=== PATIENT | female | born 1965 | race Caucasian/White ===

== ENCOUNTER 2019-07-23 14:05 | Day surgery (SDC) | payer MEDICAID, OTHER ==
[2019-07-23] MEDS ORDERED: Ondansetron 4 MG/2 ML SDV IVPUSH ONE (15:26)
[2019-07-23] MEDS ORDERED: Sodium Chloride 0.9% 1,000 ML IV SCH (15:30)
[2019-07-23] MEDS ORDERED: HYDROmorphone 0.5 MG/0.5 ML Syringe IVPUSH ONE (15:35)
[2019-07-23] MEDS ORDERED: Diatrizoate Meglumine/Diatrizoate Sodium 37% 120 ML Bottle PO ONE (16:30)
--- NOTE | 2019-07-23 16:30 | EDM.PDOC ---
ED HPI GENERAL MEDICAL PROBLEM - General Chief Complaint: Abdominal Pain Stated Complaint: ABDOMINAL PAIN Time Seen by Provider: 07/23/19 15:23 Source of Information: Reports: Patient, RN Notes Reviewed History Limitations: Reports: No Limitations - History of Present Illness INITIAL COMMENTS - FREE TEXT/NARRATIVE: Patient is a 53-year-old female who presents to the ED for evaluation of abdominal pain. Patient notes his pain has been present for around 3 days now, she states this is in her right lower quadrant, and she is having sharp intermittent pain, that is worsening with ambulation, and now she cannot even stand straight as she states that this pulls on the abdomen and causes the pain to worsen. She notes she does have a decreased appetite with this, she has nausea with eating but no vomiting. She notes she was having some cold sweats last night due to the pain. She has been trying some milk of magnesia and Tums , she thought possibly it was constipation, however she is had a few loose stools, the pain has not gotten better. Patient notes that while lying on the ER cot it feels better if she has her legs drawn up towards her chest, when she lays her legs flat this makes the pain worse. She has not had any abdominal surgeries, so still retains her appendix and gallbladder at this time. She is not having any upper abdominal pain. She denies any heart issues, lung issues, or any other urinary issues. She states that her abdomen even hurts when she bears down to go to the bathroom. She states that she has not eaten anything today, she is felt too nauseous, and her last meal was last night. 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: Musculoskeletal History: Reports: None Neurological History: Reports: Headaches, Chronic Psychiatric History: Reports: Anxiety, Depression Endocrine/Metabolic History: Reports: None Hematologic History: Reports: None Immunologic History: Reports: None Oncologic (Cancer) History: Reports: None Dermatologic History: Reports: None - Infectious Disease History Infectious Disease History: Reports: None - Past Surgical History HEENT Surgical History: Reports: Adenoidectomy, Oral Surgery, Tonsillectomy Social & Family History - Family History Family Medical History: Noncontributory - Tobacco Use Smoking Status *Q: Current Every Day Smoker Years of Tobacco use: 30 Packs/Tins Daily: 0.5 - Caffeine Use Caffeine Use: Reports: Coffee, Soda - Recreational Drug Use Recreational Drug Use: No ED ROS GENERAL - Review of Systems Review Of Systems: See Below Constitutional: Reports: Chills, Decreased Appetite. Denies: Fever, Weight Loss Respiratory: Denies: Shortness of Breath Cardiovascular: Denies: Chest Pain GI/Abdominal: Reports: Abdominal Pain (RLQ ), Diarrhea (few loose stools), Decreased Appetite, Nausea. Denies: Black Stool, Bloody Stool, Constipation, Vomiting : Denies: Discharge, Dysuria, Frequency, Urgency Musculoskeletal: Denies: Back Pain ED EXAM, GI/ABD - Physical Exam Exam: See Below Exam Limited By: No Limitations General Appearance: Alert, WD/WN, No Apparent Distress Eyes: Bilateral: Normal Appearance, EOMI Ears: Normal External Exam Nose: Normal Inspection Throat/Mouth: Normal Inspection, Normal Lips, Normal Teeth, Normal Gums, Normal Oropharynx, Normal Voice, No Airway Compromise Head: Atraumatic, Normocephalic Neck: Normal Inspection Respiratory/Chest: No Respiratory Distress, Lungs Clear, Normal Breath Sounds, No Accessory Muscle Use, Chest Non-Tender Cardiovascular: Normal Peripheral Pulses, Regular Rate, Rhythm, No Edema, No Murmur GI/Abdominal Exam: Normal Bowel Sounds, Soft, No Distention, No Mass, Rebound ( slight on RLQ), Tender (RLQ, McBurney pt positive). No: Guarding, Rigid Extremities: Normal Inspection, Normal Capillary Refill Neurological: Alert, Oriented, Normal Cognition, No Motor/Sensory Deficits Psychiatric: Normal Affect, Normal Mood Skin Exam: Warm, Dry, Intact, Normal Color, No Rash Course - Vital Signs Last Recorded V/S: Last Vital Signs Temp 98.6 F 07/23/19 14:36 Pulse 103 H 07/23/19 14:36 Resp 16 07/23/19 14:36 BP 126/81 07/23/19 14:36 Pulse Ox 93 L 07/23/19 14:36 - Orders/Labs/Meds Orders: Active Orders 24 hr Category Date Time Status Notify Provider Consults [RC] ASDIRECTED Care 07/23/19 17:58 Ordered Consult to Physician [CONS] Stat Cons 07/23/19 17:57 Ordered Ertapenem [INVanz] 1 gm Med 07/23/19 17:56 Ordered Sodium Chloride 0.9% [Normal Saline] 50 ml IV ONETIME Sodium Chloride 0.9% [Normal Saline] 1,000 ml Med 07/23/19 15:30 Ordered IV ASDIRECTED Medication Orders Sodium Chloride (Normal Saline) 1,000 mls @ 999 mls/hr IV ASDIRECTED SANDER Last Admin: 07/23/19 15:59 Dose: 999 mls/hr Labs: Laboratory Tests 07/23/19 07/23/19 07/23/19 Range/Units 15:45 15:45 16:38 WBC 13.36 H (3.98-10.04) K/mm3 RBC 4.91 (3.98-5.22) M/mm3 Hgb 15.0 (11.2-15.7) gm/dl Hct 44.4 (34.1-44.9) % MCV 90.4 (79.4-94.8) fl MCH 30.5 (25.6-32.2) pg MCHC 33.8 (32.2-35.5) g/dl RDW Std Deviation 43.0 (36.4-46.3) fL Plt Count 310 (182-369) K/mm3 MPV 8.1 L (9.4-12.3) fl Neutrophils % (Manual) 76 H (40-60) % Band Neutrophils % 0 (0-10) % Lymphocytes % (Manual) 18 L (20-40) % Atypical Lymphs % 0 % Monocytes % (Manual) 6 (2-10) % Eosinophils % (Manual) 0 L (0.7-5.8) % Basophils % (Manual) 0 L (0.1-1.2) Platelet Estimate Adequate Plt Morphology Comment Normal RBC Morph Comment Normal Sodium 140 (136-145) mEq/L Potassium 3.4 L (3.5-5.1) mEq/L Chloride 100 (98-107) mEq/L Carbon Dioxide 29 (21-32) mEq/L Anion Gap 14.4 (5-15) BUN 11 (7-18) mg/dL Creatinine 0.9 (0.55-1.02) mg/dL Est Cr Clr Drug Dosing 59.11 mL/min Estimated GFR (MDRD) > 60 (>60) mL/min BUN/Creatinine Ratio 12.2 L (14-18) Glucose 99 (74-106) mg/dL Calcium 9.4 (8.5-10.1) mg/dL Total Bilirubin 0.3 (0.2-1.0) mg/dL AST 14 L (15-37) U/L ALT 21 (14-59) U/L Alkaline Phosphatase 86 (46-116) U/L Total Protein 7.9 (6.4-8.2) g/dl Albumin 3.9 (3.4-5.0) g/dl Globulin 4.0 gm/dL Albumin/Globulin Ratio 1.0 (1-2) Urine Color Light yellow (Yellow) Urine Appearance Cloudy H (Clear) Urine pH 8.5 H (5.0-8.0) Ur Specific [place] 1.015 (1.005-1.030) Urine Protein 2+ H (Negative) Urine Glucose (UA) Negative (Negative) Urine Ketones Trace H (Negative) Urine Occult Blood Negative (Negative) Urine Nitrite Negative (Negative) Urine Bilirubin Negative (Negative) Urine Urobilinogen 0.2 (0.2-1.0) Ur Leukocyte Esterase Negative (Negative) Urine RBC 0-5 (0-5) /hpf Urine WBC 0-5 (0-5) /hpf Ur Squamous Epith Cells 20-30 H (0-5) /hpf Amorphous Sediment Many H (NOT SEEN) /hpf Urine Bacteria Rare (FEW) /hpf Urine Mucus Not seen (FEW) /hpf Urine HCG, Qual (NEGATIVE) 07/23/19 Range/Units 16:38 WBC (3.98-10.04) K/mm3 RBC (3.98-5.22) M/mm3 Hgb (11.2-15.7) gm/dl Hct (34.1-44.9) % MCV (79.4-94.8) fl MCH (25.6-32.2) pg MCHC (32.2-35.5) g/dl RDW Std Deviation (36.4-46.3) fL Plt Count (182-369) K/mm3 MPV (9.4-12.3) fl Neutrophils % (Manual) (40-60) % Band Neutrophils % (0-10) % Lymphocytes % (Manual) (20-40) % Atypical Lymphs % % Monocytes % (Manual) (2-10) % Eosinophils % (Manual) (0.7-5.8) % Basophils % (Manual) (0.1-1.2) Platelet Estimate Plt Morphology Comment RBC Morph Comment Sodium (136-145) mEq/L Potassium (3.5-5.1) mEq/L Chloride (98-107) mEq/L Carbon Dioxide (21-32) mEq/L Anion Gap (5-15) BUN (7-18) mg/dL Creatinine (0.55-1.02) mg/dL Est Cr Clr Drug Dosing mL/min Estimated GFR (MDRD) (>60) mL/min BUN/Creatinine Ratio (14-18) Glucose (74-106) mg/dL Calcium (8.5-10.1) mg/dL Total Bilirubin (0.2-1.0) mg/dL AST (15-37) U/L ALT (14-59) U/L Alkaline Phosphatase (46-116) U/L Total Protein (6.4-8.2) g/dl Albumin (3.4-5.0) g/dl Globulin gm/dL Albumin/Globulin Ratio (1-2) Urine Color (Yellow) Urine Appearance (Clear) Urine pH (5.0-8.0) Ur Specific [place] (1.005-1.030) Urine Protein (Negative) Urine Glucose (UA) (Negative) Urine Ketones (Negative) Urine Occult Blood (Negative) Urine Nitrite (Negative) Urine Bilirubin (Negative) Urine Urobilinogen (0.2-1.0) Ur Leukocyte Esterase (Negative) Urine RBC (0-5) /hpf Urine WBC (0-5) /hpf Ur Squamous Epith Cells (0-5) /hpf Amorphous Sediment (NOT SEEN) /hpf Urine Bacteria (FEW) /hpf Urine Mucus (FEW) /hpf Urine HCG, Qual Negative (NEGATIVE) Meds: Medications Generic Name Dose Route Start Last Admin Trade Name Sanjuana PRN Reason Stop Dose Admin Sodium Chloride 1,000 mls @ 999 mls/hr 07/23/19 15:30 07/23/19 15:59 Normal Saline IV 999 mls/hr ASDIRECTED SANDER Administration Discontinued Medications Generic Name Dose Route Start Last Admin Trade Name Sanjuana PRN Reason Stop Dose Admin Diatrizoate Meglum/Diatrizoate Sod 120 ml 07/23/19 16:30 07/23/19 17:20 Gastrografin 37% PO 07/23/19 16:31 120 ml ONETIME ONE Administration Hydromorphone HCl 0.5 mg 07/23/19 15:35 07/23/19 15:55 Dilaudid IVPUSH 07/23/19 15:36 0.5 mg ONETIME ONE Administration Iopamidol 100 ml 07/23/19 16:31 07/23/19 17:22 Isovue-300 (61%) IVPUSH 07/23/19 16:32 100 ml ONETIME ONE Administration Ondansetron HCl 4 mg 07/23/19 15:26 07/23/19 15:55 Zofran IVPUSH 07/23/19 15:27 4 mg ONETIME ONE Administration Sodium Chloride 10 ml 07/23/19 16:45 07/23/19 17:22 Saline Flush FLUSH 07/23/19 16:46 10 ml ONETIME ONE Administration - Re-Assessments/Exams Free Text/Narrative Re-Assessment/Exam: 07/23/19 16:32 Patient presents to the ED for the evaluation of right lower quadrant abdominal pain. Did order CBC, CMP, urinalysis, hCG, IV Zofran and some IV fluids with 0.5 mg of Dilaudid and abdomen pelvis CT with oral and IV contrast for further evaluation. 07/23/19 17:58 CBC was mildly elevated at 13,000, CT is done, demonstrates findings that are felt compatible with appendicitis, a dilated appendix, with mild inflammatory change seen around the appendix. Departure - Departure Time of Disposition: 17:59 Disposition: DC/Tfer to [facility] Access [facility] Condition: Fair Clinical Impression: Appendicitis Qualifiers: Appendicitis type: acute appendicitis Acute appendicitis type: with localized peritonitis Appendicitis gangrene presence: without gangrene Appendicitis perforation presence: without perforation Appendicitis abscess presence: without abscess Qualified Code(s): K35.30 - Acute appendicitis with localized peritonitis, without perforation or gangrene - Discharge Information *PRESCRIPTION DRUG MONITORING PROGRAM REVIEWED*: No *COPY OF PRESCRIPTION DRUG MONITORING REPORT IN PATIENT FERNANDA: No Referrals: Kat Summers NP [Primary Care Provider] - Forms: ED Department Discharge Sepsis Event Note - Evaluation Sepsis Screening Result: No Definite Risk - Focused Exam Vital Signs: Vital Signs Temp Pulse Resp BP Pulse Ox 07/23/19 14:36 98.6 F 103 H 16 126/81 93 L Date Exam was Performed: 07/23/19 Time Exam was Performed: 17:58 - My Orders Last 24 Hours: My Active Orders 07/23/19 15:30 Sodium Chloride 0.9% [Normal Saline] 1,000 ml IV ASDIRECTED 07/23/19 17:56 Ertapenem [INVanz] 1 gm Sodium Chloride 0.9% [Normal Saline] 50 ml IV ONETIME 07/23/19 17:57 Consult to Physician [CONS] Stat 07/23/19 17:58 Notify Provider Consults [RC] ASDIRECTED - Assessment/Plan Last 24 Hours: My Active Orders 07/23/19 15:30 Sodium Chloride 0.9% [Normal Saline] 1,000 ml IV ASDIRECTED 07/23/19 17:56 Ertapenem [INVanz] 1 gm Sodium Chloride 0.9% [Normal Saline] 50 ml IV ONETIME 07/23/19 17:57 Consult to Physician [CONS] Stat 07/23/19 17:58 Notify Provider Consults [RC] ASDIRECTED
[2019-07-23] MEDS ORDERED: Iopamidol 612 MG/ML 100 ML Bottle IVPUSH ONE (16:31)
[2019-07-23] MEDS ORDERED: Sodium Chloride 0.9% 10 ML Syringe FLUSH ONE (16:45)
--- NOTE | 2019-07-23 17:49 | CT ---
CT abdomen and pelvis Technique: Multiple axial sections were obtained from above the dome of the diaphragm inferiorly through the pubic symphysis. Intravenous and oral contrast was utilized. Delayed images were also obtained through the bladder. Findings: Appendix is seen and appears dilated. Mild inflammatory change is seen around the appendix. Findings are felt compatible with appendicitis. Other findings: Visualized lung bases show nothing acute. Liver contains no focal abnormality. Spleen appears within normal limits. Adrenal glands show no nodule. Kidneys show symmetric contrast enhancement without hydronephrosis or mass. Pancreas appears within normal limits. Gallbladder shows no calcified gallstones. Aorta shows mild atherosclerotic calcification without aneurysm. No retroperitoneal adenopathy is seen. No mesenteric abnormalities are seen. No pelvic mass or adenopathy is appreciated. Delayed images shows contrast within the bladder. Bone window settings were reviewed which appear within normal limits for the patient's age. Impression: 1. Findings which are felt compatible with appendicitis. 2. No other acute finding is seen on CT study of the abdomen and pelvis. Diagnostic code #5 This report was dictated in [place] Standard Time
[2019-07-23] MEDS ORDERED: Ertapenem 1 GM in Sodium Chloride 0.9% 50 ML IV ONE (17:56)
[2019-07-23] MEDS ORDERED: Lidocaine 1% 50 ML MDV ONE (19:16)
--- NOTE | 2019-07-23 19:21 | PCM.CONS ---
H&P History of Present Illness - General Date of Service: 07/23/19 Admit Problem/Dx: Admission Diagnosis/Problem Admission Diagnosis/Problem Appendicitis Source of Information: Patient History Limitations: Reports: No Limitations - History of Present Illness Initial Comments - Free Text/Narative: The patient started having RLQ abdominal pain 3 days ago. She had gotten a flu shot recently and was on PCN for tooth abscess so she thought her abdominal pain was related to the side effects of the above. However, the pain persisted and worsened. Pain is not radiating, associated with diarrhea and anorexia. She stopped antibiotics two days ago due to anorexia and her pain worsened last night prompting ED presentation today. Last meal was last night, last drink 1PM today. No prior abdominal operations. Onset of Symptoms: Reports: Gradual Duration of Symptoms: Reports: Day(s): (3), Getting Worse Location: Reports: Abdomen (RLQ) Quality: Reports: Stabbing Severity: Severe Improves with: Reports: Immobilization Worsens with: Reports: Movement Associated Symptoms: Reports: Loss of Appetite, Malaise, Other (diarrhea) Right Lower Abdomen Pain Score (Numeric/FACES): 6 - Related Data Allergies/Adverse Reactions: Allergies Allergy/AdvReac Type Severity Reaction Status Date / Time No Known Allergies Allergy Verified 07/23/19 14:30 Home Medications: Home Meds Escitalopram [Lexapro] 10 mg PO DAILY 07/23/19 [History] LORazepam [Ativan] 0.5 mg PO ONCALL PRN 07/23/19 [History] Penicillin V Potassium 500 mg PO QID 07/23/19 [History] Past Medical History HEENT History: Reports: Impaired Vision Cardiovascular History: Reports: None Respiratory History: Reports: None Gastrointestinal History: Reports: None Genitourinary History: Reports: None 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 Neurological History: Reports: Headaches, Chronic Psychiatric History: Reports: Anxiety, Depression Endocrine/Metabolic History: Reports: None Hematologic History: Reports: None Immunologic History: Reports: None Oncologic (Cancer) History: Reports: None Dermatologic History: Reports: None - Infectious Disease History Infectious Disease History: Reports: None - Past Surgical History HEENT Surgical History: Reports: Adenoidectomy, Oral Surgery, Tonsillectomy Social & Family History - Family History Family Medical History: Noncontributory - Tobacco Use Smoking Status *Q: Current Every Day Smoker Years of Tobacco use: 30 Packs/Tins Daily: 0.5 - Caffeine Use Caffeine Use: Reports: Coffee, Soda - Recreational Drug Use Recreational Drug Use: No H&P Review of Systems - Review of Systems: Review Of Systems: See Below General: Reports: Chills, Night Sweats HEENT: Reports: No Symptoms Pulmonary: Reports: No Symptoms Cardiovascular: Reports: No Symptoms Gastrointestinal: Reports: Abdominal Pain, Anorexia, Diarrhea Genitourinary: Reports: No Symptoms Musculoskeletal: Reports: No Symptoms Skin: Reports: No Symptoms Psychiatric: Reports: No Symptoms Neurological: Reports: No Symptoms Hematologic/Lymphatic: Reports: No Symptoms Exam - Exam Exam: See Below - Vital Signs Vital Signs: Last Vital Signs Temp 98.6 F 07/23/19 14:36 Pulse 103 H 07/23/19 14:36 Resp 16 07/23/19 14:36 BP 126/81 07/23/19 14:36 Pulse Ox 93 L 07/23/19 14:36 Weight: 58.967 kg - Exam General: Alert, Oriented, Cooperative, Moderate Distress HEENT: Conjunctiva Clear Neck: Supple, Trachea Midline Lungs: Clear to Auscultation, Normal Respiratory Effort Cardiovascular: Regular Rate, Regular Rhythm, Normal S1, Normal S2 GI/Abdominal Exam: Soft, No Organomegaly, No Distention, Tender (RLQ, no rebound ) - Patient Data Lab Results Last 24 hrs: Laboratory Results - last 24 hr 07/23/19 07/23/19 07/23/19 Range/Units 15:45 15:45 16:38 WBC 13.36 H (3.98-10.04) K/mm3 RBC 4.91 (3.98-5.22) M/mm3 Hgb 15.0 (11.2-15.7) gm/dl Hct 44.4 (34.1-44.9) % MCV 90.4 (79.4-94.8) fl MCH 30.5 (25.6-32.2) pg MCHC 33.8 (32.2-35.5) g/dl RDW Std Deviation 43.0 (36.4-46.3) fL Plt Count 310 (182-369) K/mm3 MPV 8.1 L (9.4-12.3) fl Neutrophils % (Manual) 76 H (40-60) % Band Neutrophils % 0 (0-10) % Lymphocytes % (Manual) 18 L (20-40) % Atypical Lymphs % 0 % Monocytes % (Manual) 6 (2-10) % Eosinophils % (Manual) 0 L (0.7-5.8) % Basophils % (Manual) 0 L (0.1-1.2) Platelet Estimate Adequate Plt Morphology Comment Normal RBC Morph Comment Normal Sodium 140 (136-145) mEq/L Potassium 3.4 L (3.5-5.1) mEq/L Chloride 100 (98-107) mEq/L Carbon Dioxide 29 (21-32) mEq/L Anion Gap 14.4 (5-15) BUN 11 (7-18) mg/dL Creatinine 0.9 (0.55-1.02) mg/dL Est Cr Clr Drug Dosing 59.11 mL/min Estimated GFR (MDRD) > 60 (>60) mL/min BUN/Creatinine Ratio 12.2 L (14-18) Glucose 99 (74-106) mg/dL Calcium 9.4 (8.5-10.1) mg/dL Total Bilirubin 0.3 (0.2-1.0) mg/dL AST 14 L (15-37) U/L ALT 21 (14-59) U/L Alkaline Phosphatase 86 (46-116) U/L Total Protein 7.9 (6.4-8.2) g/dl Albumin 3.9 (3.4-5.0) g/dl Globulin 4.0 gm/dL Albumin/Globulin Ratio 1.0 (1-2) Urine Color Light yellow (Yellow) Urine Appearance Cloudy H (Clear) Urine pH 8.5 H (5.0-8.0) Ur Specific [place] 1.015 (1.005-1.030) Urine Protein 2+ H (Negative) Urine Glucose (UA) Negative (Negative) Urine Ketones Trace H (Negative) Urine Occult Blood Negative (Negative) Urine Nitrite Negative (Negative) Urine Bilirubin Negative (Negative) Urine Urobilinogen 0.2 (0.2-1.0) Ur Leukocyte Esterase Negative (Negative) Urine RBC 0-5 (0-5) /hpf Urine WBC 0-5 (0-5) /hpf Ur Squamous Epith Cells 20-30 H (0-5) /hpf Amorphous Sediment Many H (NOT SEEN) /hpf Urine Bacteria Rare (FEW) /hpf Urine Mucus Not seen (FEW) /hpf Urine HCG, Qual (NEGATIVE) 07/23/19 Range/Units 16:38 WBC (3.98-10.04) K/mm3 RBC (3.98-5.22) M/mm3 Hgb (11.2-15.7) gm/dl Hct (34.1-44.9) % MCV (79.4-94.8) fl MCH (25.6-32.2) pg MCHC (32.2-35.5) g/dl RDW Std Deviation (36.4-46.3) fL Plt Count (182-369) K/mm3 MPV (9.4-12.3) fl Neutrophils % (Manual) (40-60) % Band Neutrophils % (0-10) % Lymphocytes % (Manual) (20-40) % Atypical Lymphs % % Monocytes % (Manual) (2-10) % Eosinophils % (Manual) (0.7-5.8) % Basophils % (Manual) (0.1-1.2) Platelet Estimate Plt Morphology Comment RBC Morph Comment Sodium (136-145) mEq/L Potassium (3.5-5.1) mEq/L Chloride (98-107) mEq/L Carbon Dioxide (21-32) mEq/L Anion Gap (5-15) BUN (7-18) mg/dL Creatinine (0.55-1.02) mg/dL Est Cr Clr Drug Dosing mL/min Estimated GFR (MDRD) (>60) mL/min BUN/Creatinine Ratio (14-18) Glucose (74-106) mg/dL Calcium (8.5-10.1) mg/dL Total Bilirubin (0.2-1.0) mg/dL AST (15-37) U/L ALT (14-59) U/L Alkaline Phosphatase (46-116) U/L Total Protein (6.4-8.2) g/dl Albumin (3.4-5.0) g/dl Globulin gm/dL Albumin/Globulin Ratio (1-2) Urine Color (Yellow) Urine Appearance (Clear) Urine pH (5.0-8.0) Ur Specific [place] (1.005-1.030) Urine Protein (Negative) Urine Glucose (UA) (Negative) Urine Ketones (Negative) Urine Occult Blood (Negative) Urine Nitrite (Negative) Urine Bilirubin (Negative) Urine Urobilinogen (0.2-1.0) Ur Leukocyte Esterase (Negative) Urine RBC (0-5) /hpf Urine WBC (0-5) /hpf Ur Squamous Epith Cells (0-5) /hpf Amorphous Sediment (NOT SEEN) /hpf Urine Bacteria (FEW) /hpf Urine Mucus (FEW) /hpf Urine HCG, Qual Negative (NEGATIVE) Result Diagrams: 07/23/19 15:45 07/23/19 15:45 Sepsis Event Note - Evaluation Sepsis Screening Result: No Definite Risk - Focused Exam Vital Signs: Vital Signs Temp Pulse Resp BP Pulse Ox 07/23/19 14:36 98.6 F 103 H 16 126/81 93 L Date Exam was Performed: 07/23/19 Time Exam was Performed: 19:16 Consult PN Assessment/Plan Problem List Initiated/Reviewed/Updated: No Plan: Patient has acute appendicitis confirmed by CT. We will start Invanz for antibiotics and proceed to the operating room for laparoscopic appendectomy, possible open. Risks, benefits and alternatives were discussed. Risks discussed include infection, bleeding, wound complications, reactions to medications, need for further interventions. Patient verbalized understanding and informed consent was signed.
[2019-07-23] MEDS ORDERED: Ondansetron 4 MG/2 ML SDV ONE (19:22)
[2019-07-23] MEDS ORDERED: Rocuronium 100 MG/10 ML MDV ONE (19:22)
[2019-07-23] MEDS ORDERED: Propofol 200 MG/20 ML SDV ONE (19:22)
[2019-07-23] MEDS ORDERED: Lidocaine 1% 4 ML ONE (19:22)
[2019-07-23] MEDS ORDERED: Midazolam 1 MG/ML 2 ML SDV ONE (19:22)
[2019-07-23] MEDS ORDERED: fentaNYL 250 MCG/5 ML SDV ONE (19:22)
[2019-07-23] MEDS ORDERED: Dexamethasone 4 MG/ML 5 ML MDV ONE (20:07)
[2019-07-23] MEDS ORDERED: Lactated Ringers 1,000 ML ONE (20:15)
[2019-07-23] MEDS ORDERED: HYDROmorphone 0.5 MG/0.5 ML Syringe ONE (20:22)
[2019-07-23] MEDS ORDERED: Neostigmine Methylsulfate 1 MG/ML 5 ML Syringe ONE (20:39)
[2019-07-23] MEDS ORDERED: Ketorolac 30 MG/ML SDV IVPUSH PRN (21:02)
[2019-07-23] MEDS ORDERED: HYDROmorphone 0.5 MG/0.5 ML Syringe IVPUSH PRN (21:02)
[2019-07-23] MEDS ORDERED: fentaNYL 100 MCG/2 ML SDV IVPUSH PRN (21:02)
--- NOTE | 2019-07-23 21:04 | PCM.POSTAN ---
POST ANESTHESIA ASSESSMENT - MENTAL STATUS Mental Status: Alert, Oriented - VITAL SIGNS Vital Signs: Last Vital Signs Temp 37.0 C 07/23/19 14:36 Pulse 103 H 07/23/19 14:36 Resp 16 07/23/19 14:36 BP 126/81 07/23/19 14:36 Pulse Ox 93 L 07/23/19 14:36 - RESPIRATORY Respiratory Status: Respiratory Rate WNL, Airway Patent, O2 Saturation Stable, Supplemental Oxygen - CARDIOVASCULAR CV Status: Pulse Rate WNL, Blood Pressure Stable - GASTROINTESTINAL GI Status: No Symptoms - PAIN Pain Score: 3 - POST OP HYDRATION Hydration Status: Adequate & Stable - OBSERVATIONS Free Text/Narrative:: no anesthesia complications noted
--- NOTE | 2019-07-23 21:05 | PCM.PREANE ---
Preanesthetic Assessment - Anesthesia/Transfusion/Family Hx Anesthesia History: Prior Anesthesia Without Reaction (nausea) Family History of Anesthesia Reaction: No Transfusion History: No Prior Transfusion(s) - Review of Systems General: Fatigue, Malaise Pulmonary: No Symptoms Cardiovascular: No Symptoms Gastrointestinal: Abdominal Pain (RLQ) Neurological: No Symptoms Other: Reports: None - Physical Assessment NPO Status Date: 07/23/19 NPO Status Time: 16:09 Vital Signs: Last Vital Signs Temp 37.0 C 07/23/19 14:36 Pulse 103 H 07/23/19 14:36 Resp 16 07/23/19 14:36 BP 126/81 07/23/19 14:36 Pulse Ox 93 L 07/23/19 14:36 Height: 1.6 m Weight: 58.967 kg ASA Class: 2E Mental Status: Alert & Oriented x3 Airway Class: Mallampati = 1 Dentition: Reports: Broken Tooth/Teeth, Missing Tooth/Teeth, Caries Thyro-Mental Finger Breadths: 3 Mouth Opening Finger Breadths: 3 ROM/Head Extension: Full Lungs: Clear to Auscultation, Normal Respiratory Effort Cardiovascular: Regular Rate, Regular Rhythm - Lab Values: Laboratory Last Values WBC 13.36 K/mm3 (3.98-10.04) H 07/23/19 15:45 RBC 4.91 M/mm3 (3.98-5.22) 07/23/19 15:45 Hgb 15.0 gm/dl (11.2-15.7) 07/23/19 15:45 Hct 44.4 % (34.1-44.9) 07/23/19 15:45 MCV 90.4 fl (79.4-94.8) 07/23/19 15:45 MCH 30.5 pg (25.6-32.2) 07/23/19 15:45 MCHC 33.8 g/dl (32.2-35.5) 07/23/19 15:45 RDW Std Deviation 43.0 fL (36.4-46.3) 07/23/19 15:45 Plt Count 310 K/mm3 (182-369) 07/23/19 15:45 MPV 8.1 fl (9.4-12.3) L 07/23/19 15:45 Neutrophils % (Manual) 76 % (40-60) H 07/23/19 15:45 Band Neutrophils % 0 % (0-10) 07/23/19 15:45 Lymphocytes % (Manual) 18 % (20-40) L 07/23/19 15:45 Atypical Lymphs % 0 % 07/23/19 15:45 Monocytes % (Manual) 6 % (2-10) 07/23/19 15:45 Eosinophils % (Manual) 0 % (0.7-5.8) L 07/23/19 15:45 Basophils % (Manual) 0 (0.1-1.2) L 07/23/19 15:45 Platelet Estimate Adequate 07/23/19 15:45 Plt Morphology Comment Normal 07/23/19 15:45 RBC Morph Comment Normal 07/23/19 15:45 Sodium 140 mEq/L (136-145) 07/23/19 15:45 Potassium 3.4 mEq/L (3.5-5.1) L 07/23/19 15:45 Chloride 100 mEq/L (98-107) 07/23/19 15:45 Carbon Dioxide 29 mEq/L (21-32) 07/23/19 15:45 Anion Gap 14.4 (5-15) 07/23/19 15:45 BUN 11 mg/dL (7-18) 07/23/19 15:45 Creatinine 0.9 mg/dL (0.55-1.02) 07/23/19 15:45 Est Cr Clr Drug Dosing 59.11 mL/min 07/23/19 15:45 Estimated GFR (MDRD) > 60 mL/min (>60) 07/23/19 15:45 BUN/Creatinine Ratio 12.2 (14-18) L 07/23/19 15:45 Glucose 99 mg/dL (74-106) 07/23/19 15:45 Calcium 9.4 mg/dL (8.5-10.1) 07/23/19 15:45 Total Bilirubin 0.3 mg/dL (0.2-1.0) 07/23/19 15:45 AST 14 U/L (15-37) L 07/23/19 15:45 ALT 21 U/L (14-59) 07/23/19 15:45 Alkaline Phosphatase 86 U/L (46-116) 07/23/19 15:45 Total Protein 7.9 g/dl (6.4-8.2) 07/23/19 15:45 Albumin 3.9 g/dl (3.4-5.0) 07/23/19 15:45 Globulin 4.0 gm/dL 07/23/19 15:45 Albumin/Globulin Ratio 1.0 (1-2) 07/23/19 15:45 Urine Color Light yellow (Yellow) 07/23/19 16:38 Urine Appearance Cloudy (Clear) H 07/23/19 16:38 Urine pH 8.5 (5.0-8.0) H 07/23/19 16:38 Ur Specific [place] 1.015 (1.005-1.030) 07/23/19 16:38 Urine Protein 2+ (Negative) H 07/23/19 16:38 Urine Glucose (UA) Negative (Negative) 07/23/19 16:38 Urine Ketones Trace (Negative) H 07/23/19 16:38 Urine Occult Blood Negative (Negative) 07/23/19 16:38 Urine Nitrite Negative (Negative) 07/23/19 16:38 Urine Bilirubin Negative (Negative) 07/23/19 16:38 Urine Urobilinogen 0.2 (0.2-1.0) 07/23/19 16:38 Ur Leukocyte Esterase Negative (Negative) 07/23/19 16:38 Urine RBC 0-5 /hpf (0-5) 07/23/19 16:38 Urine WBC 0-5 /hpf (0-5) 07/23/19 16:38 Ur Squamous Epith Cells 20-30 /hpf (0-5) H 07/23/19 16:38 Amorphous Sediment Many /hpf (NOT SEEN) H 07/23/19 16:38 Urine Bacteria Rare /hpf (FEW) 07/23/19 16:38 Urine Mucus Not seen /hpf (FEW) 07/23/19 16:38 Urine HCG, Qual Negative (NEGATIVE) 07/23/19 16:38 - Allergies Allergies/Adverse Reactions: Allergies Allergy/AdvReac Type Severity Reaction Status Date / Time No Known Allergies Allergy Verified 07/23/19 14:30 - Anesthesia Plan Pre-Op Medication Ordered: None - Acknowledgements Anesthesia Type Planned: General Anesthesia Pt an Appropriate Candidate for the Planned Anesthesia: Yes Alternatives and Risks of Anesthesia Discussed w Pt/Guardian: Yes Pt/Guardian Understands and Agrees with Anesthesia Plan: Yes PreAnesthesia Questionnaire HEENT History: Reports: Impaired Vision Cardiovascular History: Reports: None Respiratory History: Reports: None Gastrointestinal History: Reports: None Genitourinary History: Reports: None ENVIRONMENTAL CONSULTANT History: Reports: Musculoskeletal History: Reports: None Neurological History: Reports: Headaches, Chronic Psychiatric History: Reports: Anxiety, Depression Endocrine/Metabolic History: Reports: None Hematologic History: Reports: None Immunologic History: Reports: None Oncologic (Cancer) History: Reports: None Dermatologic History: Reports: None - Infectious Disease History Infectious Disease History: Reports: None - Past Surgical History HEENT Surgical History: Reports: Adenoidectomy, Oral Surgery, Tonsillectomy - SUBSTANCE USE Smoking Status *Q: Current Every Day Smoker Tobacco Use Within Last Twelve Months: Cigarettes Recreational Drug Use History: No - HOME MEDS Home Medications: Home Meds Escitalopram [Lexapro] 10 mg PO DAILY 07/23/19 [History] Hydrocodone/Acetaminophen [Hydrocodon-Acetaminophen 5-325] 1 each PO Q6H PRN 3 Days #10 tablet 07/23/19 [Rx] LORazepam [Ativan] 0.5 mg PO ONCALL PRN 07/23/19 [History] Penicillin V Potassium 500 mg PO QID 07/23/19 [History] - CURRENT (IN HOUSE) MEDS Current Meds: Current Medications Fentanyl (Sublimaze) 50 mcg IVPUSH Q5M PRN PRN Reason: Pain Hydromorphone HCl (Dilaudid) 0.5 mg IVPUSH Q10M PRN PRN Reason: Pain (severe 7-10) Sodium Chloride (Normal Saline) 1,000 mls @ 999 mls/hr IV ASDIRECTED [facility] Last Admin: 07/23/19 15:59 Dose: 999 mls/hr Ketorolac Tromethamine (Toradol) 30 mg IVPUSH ONETIME PRN PRN Reason: Pain Discontinued Medications Dexamethasone (Dexamethasone) Confirm Administered Dose 20 mg .ROUTE .STK-MED ONE Stop: 07/23/19 20:08 Diatrizoate Meglum/Diatrizoate Sod (Gastrografin 37%) 120 ml PO ONETIME ONE Stop: 07/23/19 16:31 Last Admin: 07/23/19 17:20 Dose: 120 ml Fentanyl (Sublimaze) Confirm Administered Dose 250 mcg .ROUTE .STK-MED ONE Stop: 07/23/19 19:23 Glycopyrrolate () Confirm Administered Dose 1 mg .ROUTE .STK-MED ONE Stop: 07/23/19 20:40 Hydromorphone HCl (Dilaudid) 0.5 mg IVPUSH ONETIME ONE Stop: 07/23/19 15:36 Last Admin: 07/23/19 15:55 Dose: 0.5 mg Hydromorphone HCl (Dilaudid) Confirm Administered Dose 0.5 mg .ROUTE .STK-MED ONE Stop: 07/23/19 20:23 Ertapenem 1 gm/ Sodium (Chloride) 50 mls @ 100 mls/hr IV ONETIME ONE Stop: 07/23/19 18:25 Last Admin: 07/23/19 18:16 Dose: 100 mls/hr Lidocaine HCl (Xylocaine-Mpf 1%) Confirm Administered Dose 4 mls @ as directed .ROUTE .STK-MED ONE Stop: 07/23/19 19:23 Lactated Ringer's (Ringers, Lactated) Confirm Administered Dose 1,000 mls @ as directed .ROUTE .STK-MED ONE Stop: 07/23/19 20:16 Iopamidol (Isovue-300 (61%)) 100 ml IVPUSH ONETIME ONE Stop: 07/23/19 16:32 Last Admin: 07/23/19 17:22 Dose: 100 ml Lidocaine HCl (Xylocaine 1%) Confirm Administered Dose 50 ml .ROUTE .STK-MED ONE Stop: 07/23/19 19:17 Last Admin: 07/23/19 20:05 Dose: 50 ml Midazolam HCl (Versed 1 Mg/Ml) Confirm Administered Dose 2 mg .ROUTE .STK-MED ONE Stop: 07/23/19 19:23 Neostigmine Methylsulfate (Neostigmine) Confirm Administered Dose 5 mg .ROUTE .STK-MED ONE Stop: 07/23/19 20:40 Ondansetron HCl (Zofran) 4 mg IVPUSH ONETIME ONE Stop: 07/23/19 15:27 Last Admin: 07/23/19 15:55 Dose: 4 mg Ondansetron HCl (Zofran) Confirm Administered Dose 4 mg .ROUTE .STK-MED ONE Stop: 07/23/19 19:23 Propofol (Diprivan 20 Ml) Confirm Administered Dose 200 mg .ROUTE .STK-MED ONE Stop: 07/23/19 19:23 Rocuronium [place] (Zemuron) Confirm Administered Dose 100 mg .ROUTE .STK-MED ONE Stop: 07/23/19 19:23 Sodium Chloride (Saline Flush) 10 ml FLUSH ONETIME ONE Stop: 07/23/19 16:46 Last Admin: 07/23/19 17:22 Dose: 10 ml
--- NOTE | 2019-07-23 22:03 | OR ---
DATE OF OPERATION: 07/23/2019 SURGEON: Manuel Alarcon MD PREOPERATIVE DIAGNOSIS: Acute appendicitis. POSTOPERATIVE DIAGNOSIS: Acute appendicitis. OPERATION PERFORMED: Laparoscopic appendectomy. ESTIMATED BLOOD LOSS: 10 mL. COMPLICATIONS: None. NEED FOR TREE TAPPING LABORER: Skilled assistance was needed in this case. The graduate assistant assisted with handling of the laparoscopic camera during the case as well as holding retractors when needed and incision dressing at the end of the case. INDICATION AND CONSENT: Ms. Briggs is a 53-year-old female, who started having right lower quadrant pain 3 days ago. The pain worsened over time, and the patient presented to the emergency department today, where her white count was 13, and CT scan confirmed acute appendicitis without perforation. I was called to see the patient. I saw the patient, confirmed clinical as well as imaging findings, and offered the patient laparoscopic appendectomy, possible open. I discussed with the patient the risks, benefits, and alternatives, the risks discussed including infection, including abscess, wound complications, pneumonia, blood clots, injury to nearby organs and structures, reaction to medications, and bleeding. The patient understood and agreed to proceed with the procedure. Informed consent was obtained. DESCRIPTION OF PROCEDURE: The patient was taken to the operating room and placed on the operating room table in supine position following induction of general endotracheal anesthesia. Invanz had been provided in the emergency department; therefore, no other additional preop antibiotics were needed. The patient was prepped and draped in the usual sterile fashion. A formal time-out was performed prior to the start of the procedure. Next, we began by making an infraumbilical incision. Dissection was carried down with a Yue. The umbilical stalk was grasped and elevated, and a Veress needle was introduced into the abdomen. Saline test was indicative of intraabdominal space; therefore, the abdomen was insufflated to 15 mmHg. Then, a 10 Optiview trocar was inserted under laparoscopic visualization. The abdomen was inspected. There was no injury from Veress needle insertion or trocar insertion. Then, 2 additional 5 mm trocars were placed, one in the left lower quadrant and another one in the suprapubic position, and the appendix was located in the right lower quadrant, and it was adhered to the abdominal wall. A window was made in the appendiceal base, and this was taken with a 45 blue load using an Endo ALEXANDRU stapler. Then, the mesoappendix was taken with another 45 white load using the Endo ALEXANDRU stapler. There was a bit of arterial bleeding at the staple line that was controlled with the application of clips. Once this was done, the staple lines were inspected, there was no bleeding, and the appendix was placed in an Endo Catch bag and removed through the umbilical incision. The umbilical incision then was closed at the fascia level with 0 Vicryl stitches using a Tenzin-Meena device. Then, the skin at all incisions was closed using 4-0 Monocryl stitches, and this marked the end of the procedure. All instruments, sharps, and sponges were counted and found to be correct x2. Dermabond was applied to all incisions, and the patient was extubated and taken to the PACU in stable condition. The patient will be monitored overnight and likely discharge tomorrow if tolerating diet and pain is controlled. The patient will come back to clinic in 2 weeks for a postop check. ANESTHESIA: MMODAL /[id number]
[2019-07-24] MEDS ORDERED: Acetaminophen 325 MG Tab PO PRN (04:45)
--- NOTE | 2019-07-24 07:49 | PCM48HPAN ---
Post Anesthesia Note - EVALUATION WITHIN 48HRS OF ANESTHETIC Vital Signs in Normal Range: Yes Patient Participated in Evaluation: Yes Respiratory Function Stable: Yes Airway Patent: Yes Cardiovascular Function Stable: Yes Hydration Status Stable: Yes Pain Control Satisfactory: Yes Nausea and Vomiting Control Satisfactory: Yes Mental Status Recovered: Yes Vital Signs: Last Vital Signs Temp 36.7 C 07/24/19 03:56 Pulse 82 07/24/19 03:56 Resp 16 07/24/19 03:56 BP 92/67 07/24/19 03:56 Pulse Ox 92 L 07/24/19 03:56
== END 2019-07-24 09:15 | disposition home or self-care (01) ==
LOC: JD.ED 14:05 → JD.SDS 19:09 → JD.MS 21:10 → JD.SDS 07-24 09:15
PROVIDERS: ATTEND Surgery
DX: K35.33 Acute appendicitis with perforation, localized peritonitis, and gangrene, with abscess (principal); F41.9 Anxiety disorder, unspecified; F32.9 Major depressive disorder, single episode, unspecified; F17.210 Nicotine dependence, cigarettes, uncomplicated
CPT/HCPCS: 36415; 44970; 74177; 80053; 81001; 81025; 85007; 85027; 96361; 96365; 96375; 99285; A9270; J1100; J1170; J1335; J1885; J2001; J2250; J2405; J2704; J2710; J3010; J7030; J7050; J7120; Q9963; Q9967; 00840; 99284

== ENCOUNTER 2024-09-21 18:56 | Emergency (ER) | payer BC, MEDICAID, OTHER | END 2024-09-21 20:52 | disposition home or self-care (01) | LOC: JD.ED 18:56 | DX: M79.662 Pain in left lower leg (principal); Z79.899 Other long term (current) drug therapy | CPT/HCPCS: 93971-26-LT; 93971-LT; 99283 ==